=== PATIENT | male | born 1980 | race African-American/Black ===

== ENCOUNTER 2021-10-17 06:58 | Emergency (ER) | payer OTHER, SELFPAY ==
[2021-10-17 07:36] LABS: #Basophils 0.1 10x3/uL (0.0-0.2); #Monocytes 1.1 10x3/uL (0.0-1.1); #Neutrophils 6.5 10x3/uL (1.5-8.4); %Basophils 0.9 % (0.0-2.0); %Eosinophils 0.3 % (0.0-6.0); %Lymphocytes 34.2 % (18.0-47.0); %Monocytes 9.3 % (0.0-10.0); %Neutrophils 54.5 % (40.0-75.0); Hemoglobin 15.8 g/dL (13.5-17.5); Mean Corpuscular HGB CONC 33.1 g/dL (32.0-36.0); Mean Corpuscular Hemoglobin 27.9 pg (27.0-33.0); Mean Corpuscular Volume 84.1 fl (81.2-95.1); Mean Platelet Volume 9.8 fl (7.4-10.4); Platelet Count 284 10x3/uL (150-450); Red Blood Cell (RBC) Count 5.67 10x6/uL (4.32-5.72)
[2021-10-17] MEDS ORDERED: Boostrix 0.5 ML (Tdap) VIAL ONE (07:41)
[2021-10-17 07:50] LABS: PTT 30.5 sec (22.0-33.0); Prothrombin Time 11.2 sec (9.5-12.1)
[2021-10-17 07:52] LABS: ALT (SGPT) 41 U/L (8-55); AST (SGOT) 75 U/L (5-34); Albumin 4.8 g/dL (3.5-5.0); Alkaline Phosphatase 62 U/L (40-110); Anion Gap 19 mmol/L (10-20); BUN (Urea Nitrogen) 13 mg/dL (8.9-20.6); Bilirubin, Total 1.2 mg/dL (0.2-1.2); Calc. Creatinine Clearance 0 mL/min (70-130); Calcium 9.9 mg/dL (7.8-10.44); Carbon Dioxide 21 mmol/L (22-29); Chloride 101 mmol/L (98-107); Globulin 3.5 g/dL (2.4-3.5); Glucose 106 mg/dL (70-105); Potassium 3.5 mmol/L (3.5-5.1); Protein, Total 8.3 g/dL (6.0-8.3); Sodium 137 mmol/L (136-145)
[2021-10-17] MEDS ORDERED: diphenhydrAMINE 50 MG/ML VIAL ONE (08:00)
[2021-10-17] MEDS ORDERED: Lorazepam 2 MG/ML VIAL ONE (08:00)
== END 2021-10-17 09:45 | disposition home or self-care (01) ==
LOC: CSHERS 06:58
DX: S00.81XA Abrasion of other part of head, initial encounter (principal); S09.90XA Unspecified injury of head, initial encounter; F17.290 Nicotine dependence, other tobacco product, uncomplicated; V43.92XA Unspecified car occupant injured in collision with other type car in traffic accident, initial encounter
CPT/HCPCS: 70450; 70486; 71260; 72125; 74177; 80053; 85025; 85610; 85730; 90715; 96374; 96375; J1200; J2060